=== PATIENT | male | born 1980 | race Two or more races ===

== ENCOUNTER 2020-11-29 13:58 | Emergency (ER) | payer SELFPAY ==
[~2020-11-29] VITALS: Ht 172.7 cm; Wt 74.8 kg
[2020-11-29 14:03] VITALS: BP 146/88
[2020-11-29] MEDS ORDERED: KETOROLAC TROMETH 60MG/2ML VIAL IM ONE (15:15)
== END 2020-11-29 16:58 | disposition home or self-care (01) ==
LOC: ER 13:58
DX: S00.03XA Contusion of scalp, initial encounter (principal); S46.912A Strain of unspecified muscle, fascia and tendon at shoulder and upper arm level, left arm, initial encounter; S06.9X9A Unspecified intracranial injury with loss of consciousness of unspecified duration, initial encounter; V86.59XA Driver of other special all-terrain or other off-road motor vehicle injured in nontraffic accident, initial encounter; Y93.89 Activity, other specified; Y92.89 Other specified places as the place of occurrence of the external cause; Y99.8 Other external cause status
CPT/HCPCS: 70450; 73030; 93005; 96372; 99284; J1885